=== PATIENT | female | born 1995 | race Caucasian/White ===

== ENCOUNTER 2019-02-13 02:33 | Inpatient (IN) | payer MEDICARE, MEDICAID ==
[2019-02-13] MEDS: IPRATROPIUM (NEB) 0.5 MG/2.5 ML AMP INH (02:47)
[2019-02-13] MEDS: ALBUTEROL 0.083% (NEB) 2.5 MG/3 ML AMP INH (02:47)
[2019-02-13 03:07] LABS: ADD MAN DIFF? NO
[2019-02-13 03:10] LABS: WHITE BLOOD COUNT 10.8 10^3/ul (4.8-10.8)
[2019-02-13 03:10] LABS: BASOPHIL # 0.1 10^3/ul (0.0-0.1); BASOPHILS % 0.8 % (0.0-2.0); EOSINOPHILS # 0.1 10^3/ul (0.0-0.5); HEMATOCRIT 50.5 % (37.0-47.0); HEMOGLOBIN 15.1 g/dl (12.0-16.0); LYMPHOCYTES # 1.1 10^3/ul (0.8-2.9); LYMPHOCYTES % 10.3 % (15.0-51.0); MEAN CORPUSCULAR HEMOGLOBIN 26.1 pg (29.0-33.0); MEAN CORPUSCULAR HGB CONC 29.9 g/dl (32.0-37.0); MEAN CORPUSCULAR VOLUME 87.2 fl (82.0-101.0); MEAN PLATELET VOLUME 11.4 fl (7.4-10.4); MONOCYTE # 0.7 10^3/ul (0.3-0.9); MONOCYTES % 6.8 % (0.0-11.0); NEUTROPHIL # 8.7 10^3/ul (1.6-7.5); NEUTROPHILS % 80.5 % (39.0-77.0); PLATELET COUNT 244 10^3/UL (140-415); RED BLOOD COUNT 5.79 10^6/ul (4.20-5.40); RED CELL DISTRIBUTION WIDTH 17.4 % (11.5-14.5)
[2019-02-13 03:28] LABS: ALANINE AMINOTRANSFERASE 30 IU/L (13-69); ALBUMIN/GLOBULIN RATIO 1.02; ALKALINE PHOSPHATASE 103 IU/L (42-121); ANION GAP 9 (5-13); ASPARTATE AMINO TRANSFERASE 39 IU/L (15-46); BILIRUBIN,INDIRECT 0.4 mg/dl (0-1.1); BILIRUBIN,TOTAL 0.4 mg/dl (0.2-1.3); BLOOD UREA NITROGEN 29 mg/dl (7-20); CALCIUM 9.4 mg/dl (8.4-10.2); CARBON DIOXIDE 26 mmol/L (21-31); CHLORIDE 110 mmol/L (97-110); CREATININE 0.93 mg/dl (0.44-1.00); Estimated GFR > 60 mL/min (>60); GLUCOSE 106 mg/dl (70-220); POTASSIUM 4.8 mmol/L (3.5-5.1); SODIUM 145 mmol/L (135-144); TOTAL PROTEIN 7.9 g/dl (6.1-8.1)
[2019-02-13 03:39] LABS: TROPONIN-I < 0.012 ng/ml (0.000-0.120)
[2019-02-13 03:45] LABS: Allen Test ACCEPTAB; Arterial Base Excess -0.2 mmol/L (-3.0-3); Arterial Blood Gas Oxygen Sat 89.7 mmHG (95.0-98.0); Arterial COHb 0.2 % (0.0-3.0); Arterial Fraction of Oxyhgb 89.2 % (93.0-99.0); Arterial HCO3 25.2 mmol/L (22.0-26.0); Arterial MetHb 0.4 % (0.0-1.5); Arterial pCO2 43.7 mmhg (35-45); MODE VENT - AC; Site Right Radial
[2019-02-13] MEDS: CEFEPIME 2GM/50 ML (PMX) 50 ML IVPB (05:05)
[2019-02-13] MEDS: SODIUM CHLORIDE 0.9% 1L BAG IV* (05:05)
[2019-02-13 05:44] LABS: URINE BLOOD (Dip) POC 1+ (NEGATIVE); URINE GLUCOSE (Dip) POC Negative (NEGATIVE); URINE KETONES (Dip) POC Negative (NEGATIVE); URINE LEUKOCYTE EST (Dip) POC Trace (NEGATIVE); URINE NITRITE (Dip) POC Negative (NEGATIVE); URINE TOTAL PROTEIN POC Negative (NEGATIVE)
[2019-02-13] MEDS: VANCOMYCIN 1 GM (PMX) 250 ML IVPB (05:59)
[2019-02-13 06:21] LABS: ADD UMIC YES; UR ASCORBIC ACID 40 mg/dL (NEGATIVE); UR BACTERIA FEW /HPF (NONE SEEN); UR BILIRUBIN (Dip) NEGATIVE (NEGATIVE); UR BLOOD (Dip) NEGATIVE (NEGATIVE); UR CLARITY CLOUDY (CLEAR); UR COLOR YELLOW (YELLOW); UR GLUCOSE (Dip) NEGATIVE (NEGATIVE); UR KETONES (Dip) NEGATIVE (NEGATIVE); UR LEUKOCYTE ESTERASE (Dip) TRACE Leu/ul (NEGATIVE); UR NITRITE (Dip) NEGATIVE (NEGATIVE); UR RBC 12 /HPF (0-5); UR SPECIFIC GRAVITY (Dip) 1.019 (1.003-1.030); UR SQUAMOUS EPITHELIAL CELL FEW /HPF (FEW); UR TOTAL PROTEIN (Dip) NEGATIVE (NEGATIVE); UR UROBILINOGEN (Dip) NEGATIVE (NEGATIVE); UR WBC 7 /HPF (0-5)
[2019-02-13] MEDS ORDERED: ONDANSETRON 4 MG INJ IV (08:00)
[2019-02-13] MEDS ORDERED: NACL 0.9% 3 ML SYG IV (08:00)
[2019-02-13] MEDS ORDERED: VANCOMYCIN IV PER PHARMACY XX (08:00)
[2019-02-13] MEDS: DEXTROSE 5%-0.45% NACL 1,000 ML IV (15:23)
[2019-02-13] MEDS: CEFEPIME 1GM/50 ML (PMX) 50 ML IVPB (17:38)
[2019-02-13 18:21] LABS: INR 1.12; PROTIME 14.5 Sec (11.9-14.9); PT RATIO 1.1
[2019-02-13 18:22] LABS: PARTIAL THROMBOPLASTIN TIME 28.1 Sec (23.0-35.0); THROMBIN TIME 16.1 SEC (13.8-19.1)
[2019-02-13 18:57] LABS: PLATELET COUNT 244 10^3/UL (140-415)
[2019-02-13] MEDS: HEPARIN 5,000 UNIT/1 ML VIAL SC (19:57)
[2019-02-13] MEDS: VANCOMYCIN 500 MG (PMX) 100 ML IVPB (21:02)
[2019-02-14] MEDS: SOD CHLORIDE 0.9% 500 ML IV (00:43)
[2019-02-14] MEDS: ALBUMIN HUMAN 25% 100 ML IV (02:51)
[2019-02-14 06:48] LABS: ADD MAN DIFF? NO
[2019-02-14 06:54] LABS: WHITE BLOOD COUNT 6.1 10^3/ul (4.8-10.8)
[2019-02-14 06:54] LABS: BASOPHILS % 0.7 % (0.0-2.0); EOSINOPHILS # 0.3 10^3/ul (0.0-0.5); EOSINOPHILS % 4.1 % (0.0-7.0); HEMATOCRIT 32.1 % (37.0-47.0); LYMPHOCYTES # 0.9 10^3/ul (0.8-2.9); LYMPHOCYTES % 14.9 % (15.0-51.0); MEAN CORPUSCULAR HEMOGLOBIN 26.8 pg (29.0-33.0); MEAN CORPUSCULAR HGB CONC 31.2 g/dl (32.0-37.0); MEAN CORPUSCULAR VOLUME 86.1 fl (82.0-101.0); MEAN PLATELET VOLUME 12.1 fl (7.4-10.4); MONOCYTE # 0.6 10^3/ul (0.3-0.9); MONOCYTES % 9.8 % (0.0-11.0); NEUTROPHIL # 4.3 10^3/ul (1.6-7.5); NEUTROPHILS % 70.2 % (39.0-77.0); PLATELET COUNT 147 10^3/UL (140-415); RED BLOOD COUNT 3.73 10^6/ul (4.20-5.40); RED CELL DISTRIBUTION WIDTH 17.2 % (11.5-14.5)
[2019-02-14 07:28] LABS: ALANINE AMINOTRANSFERASE 45 IU/L (13-69); ALBUMIN 3.5 g/dl (3.3-4.9); ALKALINE PHOSPHATASE 83 IU/L (42-121); ANION GAP 9 (5-13); ASPARTATE AMINO TRANSFERASE 50 IU/L (15-46); BILIRUBIN,INDIRECT 1.1 mg/dl (0-1.1); BILIRUBIN,TOTAL 1.1 mg/dl (0.2-1.3); BLOOD UREA NITROGEN 17 mg/dl (7-20); CARBON DIOXIDE 21 mmol/L (21-31); CHLORIDE 113 mmol/L (97-110); CREATININE 0.88 mg/dl (0.44-1.00); Estimated GFR > 60 mL/min (>60); GLUCOSE 100 mg/dl (70-220); MAGNESIUM 2.3 mg/dl (1.7-2.5); POTASSIUM 4.1 mmol/L (3.5-5.1); SODIUM 143 mmol/L (135-144); TOTAL PROTEIN 6.4 g/dl (6.1-8.1)
[2019-02-14] MEDS: DEXTROSE 5%-0.45% NACL 1,000 ML IV (07:32)
[2019-02-14] MEDS: VANCOMYCIN 500 MG (PMX) 100 ML IVPB (08:25)
[2019-02-14] MEDS: HEPARIN 5,000 UNIT/1 ML VIAL SC (08:37)
[2019-02-14] MEDS: CEFEPIME 1GM/50 ML (PMX) 50 ML IVPB ×2 (09:38)
[2019-02-14] MEDS: PIPER-TAZO 3.375 GM IV (PMX) 100 ML IVPB ×2 (14:30→21:10)
[2019-02-14] MEDS ORDERED: VANCOMYCIN 500 MG (PMX) 100 ML IVPB (20:00)
[2019-02-15 05:48] LABS: ADD MAN DIFF? NO
[2019-02-15 05:52] LABS: BASOPHIL # 0.1 10^3/ul (0.0-0.1); BASOPHILS % 0.6 % (0.0-2.0); EOSINOPHILS # 0.2 10^3/ul (0.0-0.5); EOSINOPHILS % 2.5 % (0.0-7.0); HEMATOCRIT 34.1 % (37.0-47.0); HEMOGLOBIN 10.5 g/dl (12.0-16.0); LYMPHOCYTES # 0.9 10^3/ul (0.8-2.9); LYMPHOCYTES % 10.6 % (15.0-51.0); MEAN CORPUSCULAR HEMOGLOBIN 26.3 pg (29.0-33.0); MEAN CORPUSCULAR HGB CONC 30.8 g/dl (32.0-37.0); MEAN CORPUSCULAR VOLUME 85.5 fl (82.0-101.0); MEAN PLATELET VOLUME 11.9 fl (7.4-10.4); MONOCYTE # 0.6 10^3/ul (0.3-0.9); MONOCYTES % 7.9 % (0.0-11.0); NEUTROPHIL # 6.2 10^3/ul (1.6-7.5); NEUTROPHILS % 77.9 % (39.0-77.0); PLATELET COUNT 150 10^3/UL (140-415); RED BLOOD COUNT 3.99 10^6/ul (4.20-5.40); RED CELL DISTRIBUTION WIDTH 16.8 % (11.5-14.5)
[2019-02-15] MEDS: PIPER-TAZO 3.375 GM IV (PMX) 100 ML IVPB ×3 (06:24→21:57)
[2019-02-15 06:33] LABS: ANION GAP 8 (5-13); BLOOD UREA NITROGEN 13 mg/dl (7-20); CALCIUM 8.9 mg/dl (8.4-10.2); CARBON DIOXIDE 23 mmol/L (21-31); CHLORIDE 113 mmol/L (97-110); CREATININE 0.97 mg/dl (0.44-1.00); Estimated GFR > 60 mL/min (>60); GLUCOSE 135 mg/dl (70-220); SODIUM 144 mmol/L (135-144)
[2019-02-15] MEDS: SOD CHLORIDE 0.9% 250 ML IV (08:16)
[2019-02-15] MEDS: HEPARIN 5,000 UNIT/1 ML VIAL SC (08:19)
[2019-02-16] MEDS: PIPER-TAZO 3.375 GM IV (PMX) 100 ML IVPB ×3 (05:49→22:34)
[2019-02-16] MEDS: HEPARIN 5,000 UNIT/1 ML VIAL SC (08:44)
[2019-02-16] MEDS: POLYETHYLENE GLYCOL 17 GM PACKET PO ×2 (10:37→21:07)
[2019-02-16] MEDS: SOD CHLORIDE 0.9% 500 ML IV (21:07)
[2019-02-17] MEDS: PIPER-TAZO 3.375 GM IV (PMX) 100 ML IVPB ×2 (05:39→13:20)
[2019-02-17] MEDS: POLYETHYLENE GLYCOL 17 GM PACKET PO ×2 (08:25→21:00)
[2019-02-17] MEDS: HEPARIN 5,000 UNIT/1 ML VIAL SC (08:29)
[2019-02-17] MEDS: ALBUTEROL/IPRATROPIUM (NEB) 3 ML AMP HHN (14:04)
[2019-02-18] MEDS: PIPER-TAZO 3.375 GM IV (PMX) 100 ML IVPB ×4 (03:12→21:40)
[2019-02-18] MEDS: POLYETHYLENE GLYCOL 17 GM PACKET PO ×2 (09:00→21:40)
[2019-02-18] MEDS: HEPARIN 5,000 UNIT/1 ML VIAL SC (09:06)
[2019-02-18 18:30] LABS: AADO2 Arterial 413.6 mmHg (7.0-24.0); Arterial Base Excess 0.3 mmol/L (-3.0-3); Arterial Blood Gas Oxygen Sat 99.3 mmHG (95.0-98.0); Arterial COHb 0.3 % (0.0-3.0); Arterial Fraction of Oxyhgb 98.6 % (93.0-99.0); Arterial HCO3 23.8 mmol/L (22.0-26.0); Arterial MetHb 0.4 % (0.0-1.5); Arterial pCO2 34.6 mmhg (35-45); MODE VENT - AC; Site Right Brachial
[2019-02-19 05:17] LABS: AADO2 Arterial 268.3 mmHg (7.0-24.0); Arterial Base Excess 1.6 mmol/L (-3.0-3); Arterial Blood Gas Oxygen Sat 98.4 mmHG (95.0-98.0); Arterial COHb 0.1 % (0.0-3.0); Arterial Fraction of Oxyhgb 97.8 % (93.0-99.0); Arterial HCO3 24.5 mmol/L (22.0-26.0); Arterial MetHb 0.5 % (0.0-1.5); Arterial pCO2 32.7 mmhg (35-45); MODE VENT - AC; Site Right Brachial
[2019-02-19 05:27] LABS: ADD MAN DIFF? NO
[2019-02-19 05:32] LABS: WHITE BLOOD COUNT 5.8 10^3/ul (4.8-10.8)
[2019-02-19 05:32] LABS: BASOPHILS % 0.5 % (0.0-2.0); EOSINOPHILS # 0.1 10^3/ul (0.0-0.5); EOSINOPHILS % 2.3 % (0.0-7.0); HEMATOCRIT 31.6 % (37.0-47.0); LYMPHOCYTES # 0.9 10^3/ul (0.8-2.9); LYMPHOCYTES % 15.3 % (15.0-51.0); MEAN CORPUSCULAR HEMOGLOBIN 26.5 pg (29.0-33.0); MEAN CORPUSCULAR HGB CONC 31.6 g/dl (32.0-37.0); MEAN CORPUSCULAR VOLUME 83.6 fl (82.0-101.0); MEAN PLATELET VOLUME 12.5 fl (7.4-10.4); MONOCYTE # 0.9 10^3/ul (0.3-0.9); MONOCYTES % 14.9 % (0.0-11.0); NEUTROPHIL # 3.9 10^3/ul (1.6-7.5); NEUTROPHILS % 66.8 % (39.0-77.0); PLATELET COUNT 154 10^3/UL (140-415); RED BLOOD COUNT 3.78 10^6/ul (4.20-5.40); RED CELL DISTRIBUTION WIDTH 16.3 % (11.5-14.5)
[2019-02-19 05:53] LABS: ANION GAP 9 (5-13); BLOOD UREA NITROGEN 14 mg/dl (7-20); CALCIUM 9.3 mg/dl (8.4-10.2); CARBON DIOXIDE 25 mmol/L (21-31); CHLORIDE 108 mmol/L (97-110); CREATININE 0.94 mg/dl (0.44-1.00); Estimated GFR > 60 mL/min (>60); GLUCOSE 103 mg/dl (70-220); SODIUM 142 mmol/L (135-144)
[2019-02-19] MEDS: PIPER-TAZO 3.375 GM IV (PMX) 100 ML IVPB ×3 (06:11→21:07)
[2019-02-19] MEDS: POLYETHYLENE GLYCOL 17 GM PACKET PO ×2 (08:49→20:38)
[2019-02-19] MEDS: HEPARIN 5,000 UNIT/1 ML VIAL SC (08:50)
[2019-02-19] MEDS ORDERED: VANCOMYCIN IV PER PHARMACY XX (11:30)
[2019-02-19] MEDS: VANCOMYCIN 750 MG (PMX) 250 ML IVPB (12:36)
[2019-02-19] MEDS: VANCOMYCIN 500 MG (PMX) 100 ML IVPB (23:37)
[2019-02-20 05:13] LABS: ADD MAN DIFF? NO
[2019-02-20 05:17] LABS: AADO2 Arterial 325.9 mmHg (7.0-24.0); Allen Test ACCEPTAB; Arterial Base Excess 2.4 mmol/L (-3.0-3); Arterial Blood Gas Oxygen Sat 90.2 mmHG (95.0-98.0); Arterial COHb 0.3 % (0.0-3.0); Arterial Fraction of Oxyhgb 89.6 % (93.0-99.0); Arterial HCO3 26.9 mmol/L (22.0-26.0); Arterial MetHb 0.4 % (0.0-1.5); Arterial pCO2 41.3 mmhg (35-45); MODE VENT - AC; Site Left Radial
[2019-02-20 05:35] LABS: WHITE BLOOD COUNT 6.6 10^3/ul (4.8-10.8)
[2019-02-20 05:35] LABS: BASOPHILS % 0.6 % (0.0-2.0); EOSINOPHILS # 0.2 10^3/ul (0.0-0.5); HEMATOCRIT 32.1 % (37.0-47.0); HEMOGLOBIN 10.2 g/dl (12.0-16.0); LYMPHOCYTES # 0.6 10^3/ul (0.8-2.9); LYMPHOCYTES % 9.4 % (15.0-51.0); MEAN CORPUSCULAR HEMOGLOBIN 26.9 pg (29.0-33.0); MEAN CORPUSCULAR HGB CONC 31.8 g/dl (32.0-37.0); MEAN CORPUSCULAR VOLUME 84.7 fl (82.0-101.0); MEAN PLATELET VOLUME 12.2 fl (7.4-10.4); MONOCYTE # 0.8 10^3/ul (0.3-0.9); MONOCYTES % 11.5 % (0.0-11.0); NEUTROPHIL # 4.9 10^3/ul (1.6-7.5); PLATELET COUNT 131 10^3/UL (140-415); RED BLOOD COUNT 3.79 10^6/ul (4.20-5.40); RED CELL DISTRIBUTION WIDTH 15.9 % (11.5-14.5)
[2019-02-20 06:05] LABS: LACTIC ACID 0.8 mmol/L (0.5-2.0)
[2019-02-20] MEDS: PIPER-TAZO 3.375 GM IV (PMX) 100 ML IVPB ×3 (06:33→21:00)
[2019-02-20 07:31] LABS: ANION GAP 7 (5-13); BLOOD UREA NITROGEN 12 mg/dl (7-20); CARBON DIOXIDE 26 mmol/L (21-31); CHLORIDE 108 mmol/L (97-110); CREATININE 0.73 mg/dl (0.44-1.00); Estimated GFR > 60 mL/min (>60); GLUCOSE 99 mg/dl (70-220); POTASSIUM 4.5 mmol/L (3.5-5.1); SODIUM 141 mmol/L (135-144)
[2019-02-20] MEDS: POLYETHYLENE GLYCOL 17 GM PACKET PO ×2 (08:20→20:45)
[2019-02-20] MEDS: HEPARIN 5,000 UNIT/1 ML VIAL SC (08:28)
[2019-02-20] MEDS: VANCOMYCIN 500 MG (PMX) 100 ML IVPB ×2 (10:59→23:22)
[2019-02-20] MEDS: LORAZEPAM 2 MG INJ IV (12:52)
[2019-02-20] MEDS: ALBUTEROL/IPRATROPIUM (NEB) 3 ML AMP HHN ×2 (14:50→19:42)
[2019-02-20] MEDS: ACETYLCYSTEINE 20% 4 ML VIAL NEB ×2 (14:50→19:42)
[2019-02-20] MEDS: SOD CHLORIDE 0.9% 250 ML IV (20:59)
[2019-02-21] MEDS: ALBUTEROL/IPRATROPIUM (NEB) 3 ML AMP HHN ×4 (01:13→19:39)
[2019-02-21] MEDS: ACETYLCYSTEINE 20% 4 ML VIAL NEB ×4 (01:13→19:39)
[2019-02-21 05:26] LABS: ADD MAN DIFF? NO
[2019-02-21 05:32] LABS: ABNORMAL IP MESSAGE 1; BASOPHILS % 0.6 % (0.0-2.0); EOSINOPHILS # 0.1 10^3/ul (0.0-0.5); EOSINOPHILS % 1.8 % (0.0-7.0); HEMATOCRIT 27.4 % (37.0-47.0); HEMOGLOBIN 8.4 g/dl (12.0-16.0); LYMPHOCYTES # 0.6 10^3/ul (0.8-2.9); LYMPHOCYTES % 11.5 % (15.0-51.0); MEAN CORPUSCULAR HEMOGLOBIN 26.8 pg (29.0-33.0); MEAN CORPUSCULAR HGB CONC 30.7 g/dl (32.0-37.0); MEAN CORPUSCULAR VOLUME 87.3 fl (82.0-101.0); MEAN PLATELET VOLUME 12.3 fl (7.4-10.4); MONOCYTE # 0.5 10^3/ul (0.3-0.9); MONOCYTES % 9.9 % (0.0-11.0); NEUTROPHIL # 3.8 10^3/ul (1.6-7.5); PLATELET COUNT 166 10^3/UL (140-415); RED BLOOD COUNT 3.14 10^6/ul (4.20-5.40); RED CELL DISTRIBUTION WIDTH 16.1 % (11.5-14.5)
[2019-02-21] MEDS: PIPER-TAZO 3.375 GM IV (PMX) 100 ML IVPB ×3 (05:33→21:30)
[2019-02-21 06:06] LABS: ANION GAP 7 (5-13); BLOOD UREA NITROGEN 12 mg/dl (7-20); CALCIUM 8.5 mg/dl (8.4-10.2); CARBON DIOXIDE 29 mmol/L (21-31); CHLORIDE 108 mmol/L (97-110); Estimated GFR > 60 mL/min (>60); GLUCOSE 102 mg/dl (70-220); MAGNESIUM 2.3 mg/dl (1.7-2.5); PHOSPHORUS 4.2 mg/dl (2.5-4.9); SODIUM 144 mmol/L (135-144)
[2019-02-21 06:08] LABS: POTASSIUM 3.9 mmol/L (3.5-5.1)
[2019-02-21 06:17] LABS: POSITIVE DIFF @See below
[2019-02-21 07:38] LABS: AADO2 Arterial 163.5 mmHg (7.0-24.0); Arterial Blood Gas Oxygen Sat 95.1 mmHG (95.0-98.0); Arterial COHb 0 % (0.0-3.0); Arterial Fraction of Oxyhgb 94.7 % (93.0-99.0); Arterial HCO3 26.3 mmol/L (22.0-26.0); Arterial MetHb 0.4 % (0.0-1.5); Arterial pCO2 39.8 mmhg (35-45); MODE VENT - AC; Site Right Brachial
[2019-02-21] MEDS: POLYETHYLENE GLYCOL 17 GM PACKET PO ×2 (08:00→20:17)
[2019-02-21] MEDS: HEPARIN 5,000 UNIT/1 ML VIAL SC (08:16)
[2019-02-21] MEDS: VANCOMYCIN 500 MG (PMX) 100 ML IVPB ×2 (11:05→23:53)
[2019-02-21 15:50] LABS: AADO2 Arterial 210.9 mmHg (7.0-24.0); Arterial Base Excess 1.7 mmol/L (-3.0-3); Arterial Blood Gas Oxygen Sat 97.5 mmHG (95.0-98.0); Arterial COHb 0.3 % (0.0-3.0); Arterial HCO3 25.3 mmol/L (22.0-26.0); Arterial MetHb 0.2 % (0.0-1.5); Arterial pCO2 35.7 mmhg (35-45); MODE VENT - AC; Site Right Brachial
[2019-02-22] MEDS: ALBUTEROL/IPRATROPIUM (NEB) 3 ML AMP HHN ×3 (01:16→13:36)
[2019-02-22] MEDS: ACETYLCYSTEINE 20% 4 ML VIAL NEB ×3 (01:16→13:35)
[2019-02-22 05:14] LABS: ADD MAN DIFF? NO
[2019-02-22 05:15] LABS: WHITE BLOOD COUNT 3.6 10^3/ul (4.8-10.8)
[2019-02-22 05:15] LABS: BASOPHILS % 1.1 % (0.0-2.0); EOSINOPHILS # 0.2 10^3/ul (0.0-0.5); EOSINOPHILS % 6.8 % (0.0-7.0); HEMATOCRIT 29.5 % (37.0-47.0); HEMOGLOBIN 9.1 g/dl (12.0-16.0); LYMPHOCYTES # 0.7 10^3/ul (0.8-2.9); LYMPHOCYTES % 18.3 % (15.0-51.0); MEAN CORPUSCULAR HEMOGLOBIN 26.5 pg (29.0-33.0); MEAN CORPUSCULAR HGB CONC 30.8 g/dl (32.0-37.0); MEAN PLATELET VOLUME 12.3 fl (7.4-10.4); MONOCYTE # 0.4 10^3/ul (0.3-0.9); MONOCYTES % 11.8 % (0.0-11.0); NEUTROPHIL # 2.2 10^3/ul (1.6-7.5); NEUTROPHILS % 61.7 % (39.0-77.0); PLATELET COUNT 226 10^3/UL (140-415); RED BLOOD COUNT 3.43 10^6/ul (4.20-5.40); RED CELL DISTRIBUTION WIDTH 16.5 % (11.5-14.5)
[2019-02-22 05:37] LABS: ANION GAP 7 (5-13); BLOOD UREA NITROGEN 12 mg/dl (7-20); CALCIUM 9.1 mg/dl (8.4-10.2); CARBON DIOXIDE 29 mmol/L (21-31); CHLORIDE 111 mmol/L (97-110); CREATININE 0.87 mg/dl (0.44-1.00); Estimated GFR > 60 mL/min (>60); GLUCOSE 97 mg/dl (70-220); POTASSIUM 3.9 mmol/L (3.5-5.1); SODIUM 147 mmol/L (135-144)
[2019-02-22] MEDS: PIPER-TAZO 3.375 GM IV (PMX) 100 ML IVPB (05:39)
[2019-02-22] MEDS: POLYETHYLENE GLYCOL 17 GM PACKET PO (08:26)
[2019-02-22] MEDS: morphine 2 MG INJ IV (09:17)
[2019-02-22] MEDS: HEPARIN 5,000 UNIT/1 ML VIAL SC (09:20)
[2019-02-22] MEDS: VANCOMYCIN 500 MG (PMX) 100 ML IVPB (11:07)
[2019-02-22] MEDS: DIGOXIN 500 MCG INJ IV ×2 (13:26→17:35)
[2019-02-22] MEDS: LORAZEPAM 2 MG INJ IV (14:41)
[2019-02-22 18:58] LABS: TROPONIN-I < 0.012 ng/ml (0.000-0.120)
== END 2019-02-22 20:00 | DRG 207 ==
LOC: E/R 02:33 → ICU 02-18 18:42 → 6WM 04:58
PROC: 5A1955Z Respiratory Ventilation, Greater than 96 Consecutive Hours (ICD-10-PCS; principal; 2019-02-13)
PROC: 02HV33Z Insertion of Infusion Device into Superior Vena Cava, Percutaneous Approach (ICD-10-PCS; 2019-02-20)
PROC: B548ZZA Ultrasonography of Superior Vena Cava, Guidance (ICD-10-PCS; 2019-02-20)
DX: J18.1 Lobar pneumonia, unspecified organism (principal); J96.21 Acute and chronic respiratory failure with hypoxia; Z99.11 Dependence on respirator [ventilator] status; J96.10 Chronic respiratory failure, unspecified whether with hypoxia or hypercapnia; G93.49 Other encephalopathy; Q90.9 Down syndrome, unspecified; R13.10 Dysphagia, unspecified; R00.0 Tachycardia, unspecified; Z93.1 Gastrostomy status; I51.7 Cardiomegaly; Z95.5 Presence of coronary angioplasty implant and graft; T17.990A Other foreign object in respiratory tract, part unspecified in causing asphyxiation, initial encounter; X58.XXXA Exposure to other specified factors, initial encounter; Y95 Nosocomial condition; D64.9 Anemia, unspecified
CPT/HCPCS: 36415; 36569; 36600; 71045; 71250; 76937; 80048; 80053; 80202; 81001; 81003; 82803; 83605; 83735; 84100; 84443; 84484; 85025; 85049; 85610; 85670; 85730; 87040-91; 87081; 93005; 93306; 94002; 94003; 94640; 94664; 94667; 94668; 99285-25